=== PATIENT | female | born 1990 | race Caucasian/White ===

== ENCOUNTER 2016-10-17 13:48 | Emergency (ER) | payer OTHER ==
[~2016-10-17] VITALS: Ht 160 cm; Wt 58.2 kg
[~2016-10-17 13:48] MED LIST: ALBUTEROL SULF8.5 GM IH; ATARAX,VISTARIL25 MG PO; BACTRIM,SEPT1 TABLET PO; IBUPROFEN600 MG PO; INDOCIN50 MG PO; MIRTAZAPINE15 MG PO; NAPROSYN500 MG PO; PAXIL CR25 MG PO; PEN-VEE K,VEET500 MG PO; PERCOCET 5/31 TABLET PO; TRAMADOL HCL50 MG PO; ULTRACET1 TABLET PO; ULTRAM50 MG PO; VALIUM5 MG PO; VIT B; VYVANSE40 MG PO; ZYPREXA
[2016-10-17 14:54] LABS: HEMATOCRIT 37.1 % (36.0-46.0); MCH 29.9 PG (29.0-34.0); MCHC 34.2 G/DL (30.0-36.0); MCV 87.3 FL (83-99); MEAN PLAT.VOLUME 9.8 uM^3 (9.5-12.4); PLATELET COUNT 314 K/uL (156-360); RBC DIS.WIDTH-CV 13.2 % (11.8-14.6); RBC DIS.WIDTH-SD 40.8 % (39-53); RED BLOOD COUNT 4.25 M/uL (3.80-5.20); WHITE BLOOD COUNT 8.8 K/uL (4.1-10.2)
[2016-10-17 15:09] LABS: CHLORIDE 114 mEq/L (99-109); POTASSIUM 3.7 mEq/L (3.7-5.4); SODIUM 145 mEq/L (136-147)
[2016-10-17 15:10] LABS: GLUCOSE 79 mg/dL (70-99)
[2016-10-17 15:12] LABS: ANION GAP 11 MEQ/L (2-14)
[2016-10-17 15:14] LABS: GFR ESTIMATE (CALCULATED) > 59 mL/min/
[2016-10-17 15:15] LABS: UREA NITROGEN (BUN) 12 mg/dL (9-23)
[2016-10-17 16:19] LABS: D-DIMER ELISA < 0.15 mg/L FEU (< 0.57)
[2016-10-17] MEDS ORDERED: PROVENTIL HFA6.7 GM IH (17:00)
[2016-10-17] MEDS ORDERED: ERY-TAB500 MG PO (17:00)
[2016-10-17] MEDS ORDERED: MEDROL DOSEPAK4 MG PO (17:00)
[2016-10-17 17:41] VITALS: BP 135/80
== END 2016-10-17 17:40 | disposition home or self-care (01) ==
LOC: EME 13:48
DX: J45.901 Unspecified asthma with (acute) exacerbation (principal); F17.200 Nicotine dependence, unspecified, uncomplicated; Z71.6 Tobacco abuse counseling
CPT/HCPCS: 71020; 80048; 85027; 85379; 93005; 94644; 99281; 99285; J7512

== ENCOUNTER 2016-10-19 15:08 | Emergency (ER) | payer OTHER ==
[~2016-10-19] VITALS: Ht 160 cm; Wt 60.4 kg
[~2016-10-19 15:08] MED LIST changes: +ERY-TAB500 MG PO; +MEDROL DOSEPAK4 MG PO; +PROVENTIL HFA6.7 GM IH
[2016-10-19] MEDS ORDERED: DEPO-PROVERA (15:20)
[2016-10-19 16:11] LABS: INFLUENZA A VIRAL ANTIGEN NEGATIVE; INFLUENZA B VIRAL ANTIGEN NEGATIVE
[2016-10-19 16:45] VITALS: BP 114/69
== END 2016-10-19 16:52 | disposition home or self-care (01) ==
LOC: EME → EDBD 15:08 → EME 15:08
PROVIDERS: Nurse Practitioner Family
DX: J45.909 Unspecified asthma, uncomplicated (principal); F17.200 Nicotine dependence, unspecified, uncomplicated
CPT/HCPCS: 71020; 87502; 94640; 99281; 99284; J1100; J7644; Q0177

== ENCOUNTER 2016-12-25 13:26 | Emergency (ER) | payer OTHER ==
[~2016-12-25] VITALS: Ht 160 cm; Wt 59.0 kg
[~2016-12-25 13:26] MED LIST changes: +DEPO-PROVERA
[2016-12-25] MEDS ORDERED: MOTRIN800 MG PO (15:27)
[2016-12-25 15:45] VITALS: BP 127/90
== END 2016-12-25 16:02 | disposition home or self-care (01) ==
LOC: EME 13:26
DX: S93.401A Sprain of unspecified ligament of right ankle, initial encounter (principal); S83.92XA Sprain of unspecified site of left knee, initial encounter; V49.40XA Driver injured in collision with unspecified motor vehicles in traffic accident, initial encounter
CPT/HCPCS: 73610; 73630; 99281; 99284

== ENCOUNTER 2017-02-21 06:44 | Emergency (ER) | payer SELFPAY ==
[~2017-02-21] VITALS: Ht 160 cm; Wt 56.9 kg
[~2017-02-21 06:44] MED LIST changes: +MOTRIN800 MG PO
[2017-02-21 07:45] LABS: HEMATOCRIT 40.5 % (36.0-46.0); MCH 30.2 PG (29.0-34.0); MCHC 34.6 G/DL (30.0-36.0); MCV 87.3 FL (83-99); MEAN PLAT.VOLUME 10.5 uM^3 (9.5-12.4); PLATELET COUNT 256 K/uL (156-360); RBC DIS.WIDTH-CV 11.9 % (11.8-14.6); RBC DIS.WIDTH-SD 38.4 % (39-53); RED BLOOD COUNT 4.64 M/uL (3.80-5.20); WHITE BLOOD COUNT 6.9 K/uL (4.1-10.2)
[2017-02-21 08:11] LABS: ANION GAP 6 MEQ/L (2-14); CHLORIDE 103 MEQ/L (99-109); POTASSIUM 4.3 MEQ/L (3.7-5.4); SAMPLE HEMOLYSIS CHECK 1; SAMPLE ICTERIC CHECK 0; SAMPLE LIPEMIA CHECK 0; SODIUM 134 MEQ/L (136-147)
[2017-02-21 08:17] LABS: GFR ESTIMATE (CALCULATED) > 59 mL/min/; GLUCOSE 87 mg/dL (70-99); UREA NITROGEN (BUN) 12 mg/dL (9-23)
[2017-02-21 08:20] LABS: QUANTITATIVE HCG < 4.0 MIU/ML
[2017-02-21 09:03] LABS: ADD MIUA? YES; BILIRUBIN NEGATIVE; BLOOD SMALL; COLOR YELLOW ((YELLOW)); GLUCOSE (STRIP) NEGATIVE; KETONES NEGATIVE; LEUKOCYTES TRACE; NITRITE NEGATIVE; PROTEIN (STRIP) NEGATIVE; SPECIFIC GRAVITY 1.016 (1.000-1.030); UROBILINOGEN 0.2 MG/DL (0.2-1.0)
[2017-02-21 09:18] LABS: BACTERIA RARE /HPF; EPITHELIAL CELLS 1+ /HPF; HYALINE CASTS 0-5 /LPF; MUCUS TRACE /LPF; RED BLOOD CELLS 0-5 /HPF (0-5); UCUL ADDED? NO; WHITE BLOOD CELLS 0-5 /HPF (0-5)
[2017-02-21 11:00] VITALS: BP 114/66
[2017-02-21] MEDS ORDERED: NAPROSYN500 MG PO (11:30)
[2017-02-21] MEDS ORDERED: ZOFRAN4 MG PO (11:30)
== END 2017-02-21 11:58 | disposition home or self-care (01) ==
LOC: EME 06:44
PROVIDERS: Nurse Practitioner Family
DX: R10.9 Unspecified abdominal pain (principal); R11.2 Nausea with vomiting, unspecified; R19.7 Diarrhea, unspecified
CPT/HCPCS: 76856; 80048; 81003; 84702; 85027; 99281; 99285; J1885; J2405; J7030

== ENCOUNTER 2017-09-20 23:43 | Emergency (ER) | payer OTHER ==
[~2017-09-20] VITALS: Ht 160 cm; Wt 53.2 kg
[~2017-09-20 23:43] MED LIST changes: +ZOFRAN4 MG PO
[2017-09-21 01:51] LABS: AMPHETAMINE NEGATIVE (500 ng/mL); BARBITURATES NEGATIVE (200 ng/mL); BENZODIAZEPINES NEGATIVE (150 ng/mL); BUPRENORPHINE NEGATIVE (10 ng/mL); COCAINE NEGATIVE (150 ng/mL); METHADONE NEGATIVE (200 ng/mL); METHAMPHETAMINE NEGATIVE (500 ng/mL); OPIATES (MORPHINE) NEGATIVE (100 ng/mL); OXYCODONE NEGATIVE (100 ng/mL); PHENCYCLIDINE NEGATIVE (25 ng/mL); PROPOXYPHENE NEGATIVE (300 ng/mL); THC CANNABINOIDS PRESUMPTIVE POSITIVE (50 ng/mL); TRICYCLIC ANTIDEPRESSANTS NEGATIVE (300 ng/mL)
[2017-09-21 01:53] LABS: BASOPHIL (%) 0.8 % (0-1); BASOPHIL COUNT 0.1 K/uL (0-0.1); EOSINOPHIL (%) 0.3 % (0-5); HEMATOCRIT 39.6 % (36.0-46.0); HEMOGLOBIN 13.8 G/DL (11.9-15.5); IMMATURE GRANULOCYTE (%) 0.2 % (0.0-0.7); LYMPHOCYTE (%) 42.9 % (15-42); LYMPHOCYTE COUNT 3.9 K/uL (1.0-2.8); MCH 30.3 PG (29.0-34.0); MCHC 34.8 G/DL (30.0-36.0); MCV 86.8 FL (83-99); MONOCYTE (%) 4.4 % (3-12); MONOCYTE COUNT 0.4 K/uL (0-0.8); NEUTROPHIL (%) 51.4 % (45-76); NEUTROPHIL COUNT 4.7 K/uL (1.8-6.4); PLATELET COUNT 283 K/uL (156-360); RBC DIS.WIDTH-CV 12.2 % (11.8-14.6); RBC DIS.WIDTH-SD 39.2 % (39-53); RED BLOOD COUNT 4.56 M/uL (3.80-5.20); WHITE BLOOD COUNT 9.1 K/uL (4.1-10.2)
[2017-09-21 02:01] LABS: CHLORIDE 111 mEq/L (99-109); POTASSIUM 3.8 mEq/L (3.7-5.4); SODIUM 143 mEq/L (136-147)
[2017-09-21 02:03] LABS: GLUCOSE 85 mg/dL (70-99)
[2017-09-21 02:06] LABS: SERUM ETHYL ALCOHOL 154 mg/dL
[2017-09-21 02:07] LABS: CREATININE 0.9 mg/dL (0.6-1.3); GFR ESTIMATE (CALCULATED) > 59 mL/min/
[2017-09-21 02:08] LABS: UREA NITROGEN (BUN) 11 mg/dL (9-23)
[2017-09-21 04:33] VITALS: BP 104/67
== END 2017-09-21 04:34 | disposition home or self-care (01) ==
LOC: EME 23:43
PROVIDERS: Emergency Medicine
DX: F10.129 Alcohol abuse with intoxication, unspecified (principal); F19.14 Other psychoactive substance abuse with psychoactive substance-induced mood disorder; F10.14 Alcohol abuse with alcohol-induced mood disorder; Y90.6 Blood alcohol level of 120-199 mg/100 ml; F32.9 Major depressive disorder, single episode, unspecified; F41.9 Anxiety disorder, unspecified; F90.9 Attention-deficit hyperactivity disorder, unspecified type; F17.200 Nicotine dependence, unspecified, uncomplicated; Z88.5 Allergy status to narcotic agent; Z88.8 Allergy status to other drugs, medicaments and biological substances
CPT/HCPCS: 80048; 84999; 85025; 99281; 99284; G0480

== ENCOUNTER 2017-12-17 09:08 | Emergency (ER) | payer OTHER ==
[~2017-12-17] VITALS: Ht 160 cm; Wt 50.7 kg
[2017-12-17] MEDS ORDERED: TYLENOL WITH C1 EACH PO (10:17)
[2017-12-17 10:50] VITALS: BP 130/82
== END 2017-12-17 10:52 | disposition home or self-care (01) ==
LOC: EME 09:08
DX: S83.91XA Sprain of unspecified site of right knee, initial encounter (principal); X50.1XXA Overexertion from prolonged static or awkward postures, initial encounter; Y93.01 Activity, walking, marching and hiking; F17.200 Nicotine dependence, unspecified, uncomplicated; Z88.5 Allergy status to narcotic agent; Z88.1 Allergy status to other antibiotic agents; Z88.6 Allergy status to analgesic agent
CPT/HCPCS: 73564; 99281; 99284

== ENCOUNTER 2018-01-19 00:58 | Emergency (ER) | payer OTHER ==
[~2018-01-19] VITALS: Ht 162.6 cm; Wt 52.6 kg
[~2018-01-19 00:58] MED LIST changes: +TYLENOL WITH C1 EACH PO
[2018-01-19 01:40] LABS: HEMATOCRIT 39.9 % (36.0-46.0); HEMOGLOBIN 13.8 G/DL (11.9-15.5); MCH 31.7 PG (29.0-34.0); MCHC 34.6 G/DL (30.0-36.0); MCV 91.5 FL (83-99); PLATELET COUNT 266 K/uL (156-360); RBC DIS.WIDTH-CV 12.3 % (11.8-14.6); RBC DIS.WIDTH-SD 41.1 % (39-53); RED BLOOD COUNT 4.36 M/uL (3.80-5.20); WHITE BLOOD COUNT 10.1 K/uL (4.1-10.2)
[2018-01-19 01:50] LABS: AMPHETAMINE NEGATIVE (500 ng/mL); BARBITURATES NEGATIVE (200 ng/mL); BENZODIAZEPINES PRESUMPTIVE POSITIVE (150 ng/mL); BUPRENORPHINE NEGATIVE (10 ng/mL); COCAINE NEGATIVE (150 ng/mL); METHADONE NEGATIVE (200 ng/mL); METHAMPHETAMINE NEGATIVE (500 ng/mL); OPIATES (MORPHINE) NEGATIVE (100 ng/mL); OXYCODONE PRESUMPTIVE POSITIVE (100 ng/mL); PHENCYCLIDINE NEGATIVE (25 ng/mL); PROPOXYPHENE NEGATIVE (300 ng/mL); THC CANNABINOIDS PRESUMPTIVE POSITIVE (50 ng/mL); TRICYCLIC ANTIDEPRESSANTS NEGATIVE (300 ng/mL)
[2018-01-19 01:51] LABS: CHLORIDE 104 mEq/L (99-109); POTASSIUM 4.2 mEq/L (3.7-5.4); SODIUM 143 mEq/L (136-147)
[2018-01-19 01:53] LABS: GLUCOSE 109 mg/dL (70-99)
[2018-01-19 01:56] LABS: SERUM ETHYL ALCOHOL 181 mg/dL
[2018-01-19 01:57] LABS: GFR ESTIMATE (CALCULATED) > 59 mL/min/
[2018-01-19 01:58] LABS: UREA NITROGEN (BUN) 9 mg/dL (9-23)
[2018-01-19 02:06] LABS: QUANTITATIVE HCG < 4.0 MIU/ML
[2018-01-19 04:02] LABS: BENZODIAZEPINES, URINE SCREEN POSITIVE (200 ng/mL)
[2018-01-19 12:01] VITALS: BP 118/84
== END 2018-01-19 12:40 ==
LOC: EME 00:58
DX: F33.2 Major depressive disorder, recurrent severe without psychotic features (principal); F11.129 Opioid abuse with intoxication, unspecified; F12.129 Cannabis abuse with intoxication, unspecified; F10.229 Alcohol dependence with intoxication, unspecified; F17.200 Nicotine dependence, unspecified, uncomplicated; Y90.6 Blood alcohol level of 120-199 mg/100 ml; Z88.5 Allergy status to narcotic agent; Z88.6 Allergy status to analgesic agent; Z88.1 Allergy status to other antibiotic agents; Z88.8 Allergy status to other drugs, medicaments and biological substances
CPT/HCPCS: 80048; 84702; 84999; 85027; 90837; G0480